=== PATIENT | male | born 1940 | race African-American/Black ===

== ENCOUNTER 2021-07-24 15:11 | Emergency (ER) | payer SELFPAY ==
[~2021-07-24] VITALS: Ht 188 cm; Wt 79.0 kg
[2021-07-24] MEDS ORDERED: BACITRACIN ZINC OINT UDPKT TOP ONE (16:00)
[2021-07-24] MEDS ORDERED: ACETAMINOPHEN 325MG TABLET PO ONE (16:00)
[2021-07-24] MEDS ORDERED: LIDOCAINE HCL/PF 1% 10 MG/ML 5ML VIAL INFIL ONE (16:00)
[2021-07-24] MEDS ORDERED: TETANUS, DIPHTHERIA, PERTUSSIS VAC/PF 0.5ML (>10YR OLD) IM ONE (16:00)
[2021-07-24] MEDS ORDERED: LIDOCAINE HCL 1% 10 MG/ML 10ML VIAL INJ NR (16:03)
[2021-07-24] MEDS ORDERED: AMOXICILLIN/POTASSIUM CLAVULANATE 875/125MG TAB PO ONE (18:00)
[2021-07-24] MEDS ORDERED: BO1 TP (18:02)
[2021-07-24] MEDS ORDERED: ACET-2708 MT (18:02)
[2021-07-24] MEDS ORDERED: AMOX-424 MT ×2 (18:02)
[2021-07-24 18:18] VITALS: BP 141/64
== END 2021-07-24 18:20 | disposition home or self-care (01) ==
LOC: ER 15:11
DX: S51.851A Open bite of right forearm, initial encounter (principal); W54.0XXA Bitten by dog, initial encounter; Y93.89 Activity, other specified; Y92.017 Garden or yard in single-family (private) house as the place of occurrence of the external cause
CPT/HCPCS: 12006; 73090; 90471; 90715; 99284; J3490

== ENCOUNTER 2021-07-27 10:51 | Emergency (ER) | payer SELFPAY ==
[~2021-07-27] VITALS: Ht 185.4 cm; Wt 85.0 kg
[~2021-07-27 10:51] MED LIST: ACET-2708 MT; AMOX-424 MT; BO1 TP
[2021-07-27] MEDS ORDERED: AMOX-424 MT (11:09)
[2021-07-27] MEDS ORDERED: AMOXICILLIN/POTASSIUM CLAVULANATE 875/125MG TAB PO ONE (11:15)
[2021-07-27 11:42] VITALS: BP 142/75
== END 2021-07-27 11:42 | disposition home or self-care (01) ==
LOC: ER 10:51
DX: S51.811D Laceration without foreign body of right forearm, subsequent encounter (principal); Z48.00 Encounter for change or removal of nonsurgical wound dressing; X58.XXXD Exposure to other specified factors, subsequent encounter
CPT/HCPCS: 99283

== ENCOUNTER 2021-08-16 09:46 | Emergency (ER) | payer SELFPAY ==
[~2021-08-16] VITALS: Ht 190.5 cm; Wt 83.0 kg
[2021-08-16 09:59] VITALS: BP 130/76
== END 2021-08-16 10:39 | disposition home or self-care (01) ==
LOC: ER 09:46
DX: Z48.02 Encounter for removal of sutures (principal)
CPT/HCPCS: 99281